=== PATIENT | female | born 1985 | race Caucasian/White ===

== ENCOUNTER 2017-03-07 21:47 | Emergency (ER) | payer OTHER ==
[2017-03-07] MEDS ORDERED: SODIUM CHLORIDE 0.9% 1,000 ML IV ONE (22:24)
[2017-03-07] MEDS ORDERED: RX INFO: IV CONTRAST WAS GIVEN 1 EACH MISC MISCELLANE PRN (22:30)
[2017-03-07] MEDS ORDERED: HYDROmorphone 1 MG/ML 1 ML SYRINGE IVP STA (22:30)
[2017-03-07 23:02] LABS: Basophils # (A) 0.1 k/uL (0-0.2); Basophils % (A) 1 %; CH 31.4; CHCM 35.4; Eosinophils # (A) 0.1 k/uL (0-0.7); Eosinophils % (A) 1 %; HCT 36.9 % (34.0-46.0); HDW 2.57; Luc # (Auto) 0.15; Luc % (Auto) 1; Lymphocytes # (A) 1.8 k/uL (1.0-4.8); Lymphocytes % (A) 17 %; MCH 31.2 pg (25.0-35.0); MCHC 35.1 g/dL (31.0-37.0); MCV 88.9 fL (80.0-100.0); Mean Platelet Volume 6.9; Monocytes # (A) 0.4 k/uL (0-1.0); Monocytes % (A) 4 %; Neutrophils % (A) 76 %; RBC 4.16 m/uL (3.80-5.40); RDW 12.5 % (11.5-15.5); WBC 10.5 k/uL (3.8-10.6); WBC (Perox) 10.91
[2017-03-07 23:05] LABS: Appearance,Urine Clear (Clear); Bilirubin,Urine Negative (Negative); Glucose,Urine (UA) Negative (Negative); Ketones,Urine Negative (Negative); Leukocyte Esterase,Urine Negative (Negative); Nitrite,Urine Negative (Negative); Protein,Urine Negative (Negative); Specific Gravity,Urine 1.001 (1.001-1.035); UA Billing (MACRO vs. MICRO) CHEM; Urobilinogen,Urine <2.0 mg/dL (<2.0)
[2017-03-07 23:11] LABS: ALT 31 U/L (9-52); AST 20 U/L (14-36); Alkaline Phosphatase 56 U/L (38-126); Amylase 40 U/L (30-110); Anion Gap 11 mmol/L; Blood Urea Nitrogen 8 mg/dL (7-17); Calcium 10.3 mg/dL (8.4-10.2); Carbon Dioxide 24 mmol/L (22-30); Chloride 109 mmol/L (98-107); Glucose 93 mg/dL (74-99); Non-African American GFR(MDRD) >60 (>60 ml/min/1.73 sqM); Sodium 144 mmol/L (137-145); Total Bilirubin 0.5 mg/dL (0.2-1.3); Total Protein 6.8 g/dL (6.3-8.2)
[2017-03-07 23:12] LABS: INR 1.2 (<1.1); Prothrombin Time 11.7 sec (9.0-12.0)
[2017-03-07 23:13] LABS: Partial Thromboplastin Time 27.3 sec (22.0-30.0)
--- NOTE | 2017-03-07 23:49 | ED ---
Female Urogenital HPI - General Chief complaint: Urogenital Stated complaint: Abd Pain Time Seen by Provider: 03/07/17 22:05 Source: patient Mode of arrival: wheelchair Limitations: no limitations - History of Present Illness Initial comments: This is a 31-year-old female presenting to emergency Department chief complaint of lower suprapubic pain for the past week. Patient reports that the pain will be sudden in onset and then stop. Patient states that she's had no fever or chills. She reports that last week she did have some vaginal bleeding and clots. She reports that it stopped for the past 5 days. Patient reports however yesterday she did have some dark red blood. She denies any chance of . She reports that she's had tubal ligation. Denies any other abdominal surgeries. PAtient also reports diarrhea for past 2 days. Last Menstrual Period: 02/27/17 - Related Data Home Medications Medication Instructions Recorded Confirmed Aspirin/Acetaminophen/Caffeine 1 tab PO Q3HR PRN 03/07/17 03/07/17 [Excedrin Migraine Caplet] Previous Rx's Medication Instructions Recorded Ciprofloxacin HCl [Cipro] 500 mg PO Q12HR #20 tablet 03/08/17 HYDROcodone/APAP 10-325MG [[place] 1 tab PO Q6H PRN #15 tab 03/08/17 10-325] Metoclopramide HCl [Reglan] 10 mg PO TID #15 tablet 03/08/17 metroNIDAZOLE [Flagyl] 500 mg PO Q8HR #30 tab 03/08/17 Allergies Allergy/AdvReac Type Severity Reaction Status Date / Time No Known Allergies Allergy Verified 03/07/17 22:57 Review of Systems ROS Statement: Those systems with pertinent positive or pertinent negative responses have been documented in the HPI. ROS Other: All systems not noted in ROS Statement are negative. Past Medical History Additional Past Medical History / Comment(s): kidney disease. History of Any Multi-Drug Resistant Organisms: None Reported Past Surgical History: Tubal Ligation Additional Past Surgical History / Comment(s): d&c Past Psychological History: No Psychological Hx Reported Smoking Status: Current every day smoker Past Alcohol Use History: None Reported Past Drug Use History: Marijuana General Exam - General Exam Comments Initial Comments: Patient is rocking back in forth on bed, writhing in pain. Some dryheaves on exam. Limitations: no limitations General appearance: alert, in no apparent distress Head exam: Present: atraumatic, normocephalic, normal inspection Eye exam: Present: normal appearance, PERRL, EOMI. Absent: scleral icterus, conjunctival injection, periorbital swelling ENT exam: Present: normal exam, mucous membranes moist Neck exam: Present: normal inspection. Absent: tenderness, meningismus, lymphadenopathy Respiratory exam: Present: normal lung sounds bilaterally. Absent: respiratory distress, wheezes, rales, rhonchi, stridor Cardiovascular Exam: Present: regular rate, normal rhythm, normal heart sounds. Absent: systolic murmur, diastolic murmur, rubs, gallop, clicks GI/Abdominal exam: Present: soft, tenderness (suprapubic tenderness), normal bowel sounds. Absent: distended, guarding, rebound, rigid Extremities exam: Present: normal inspection, full ROM, normal capillary refill. Absent: tenderness, pedal edema, joint swelling, calf tenderness Back exam: Present: normal inspection Neurological exam: Present: alert, oriented X3, CN II-XII intact Psychiatric exam: Present: normal affect, normal mood Skin exam: Present: warm, dry, intact, normal color. Absent: rash Course Vital Signs 03/07/17 03/07/17 03/08/17 21:50 22:56 01:01 Temperature 99.1 F 98.6 F Pulse Rate 67 69 62 Respiratory 20 18 16 Rate Blood Pressure 119/63 111/56 104/61 O2 Sat by Pulse 96 97 98 Oximetry 03/08/17 02:29 Temperature 97.9 F Pulse Rate 68 Respiratory 18 Rate Blood Pressure 104/72 O2 Sat by Pulse 99 Oximetry Medical Decision Making - Medical Decision Making 31-year-old female chief complaint of cramping pelvic pain and diarrhea for the past 2 days. Patient received IV pain medication, nausea medicine and blood work. Patient lab work was reviewed and benign. She did receive a CAT scan based on her physical presentation of severe lower abdominal pain. CAT scan shows evidence of colitis, 2.5 cm right ovarian cyst, some mild free fluid. Patient was also reevaluated with a transvaginal ultrasound. Patient ultrasound was negative for ovarian torsion. Patient will be treated with colitis with antibiotics. Discuss close follow-up with a primary care physician. Also discussed the patient can take nausea medicine or pain medicine as needed. Patient understands treatment plan will comply. Return parameters were discussed. - Lab Data Result diagrams: 03/07/17 22:45 03/07/17 22:45 Lab Results 03/07/17 03/07/17 03/07/17 Range/Units 22:41 22:41 22:45 WBC 10.5 (3.8-10.6) k/uL RBC 4.16 (3.80-5.40) m/uL Hgb 13.0 (11.4-16.0) gm/dL Hct 36.9 (34.0-46.0) % MCV 88.9 (80.0-100.0) fL MCH 31.2 (25.0-35.0) pg MCHC 35.1 (31.0-37.0) g/dL RDW 12.5 (11.5-15.5) % Plt Count 321 (150-450) k/uL Neutrophils % 76 % Lymphocytes % 17 % Monocytes % 4 % Eosinophils % 1 % Basophils % 1 % Neutrophils # 8.0 H (1.3-7.7) k/uL Lymphocytes # 1.8 (1.0-4.8) k/uL Monocytes # 0.4 (0-1.0) k/uL Eosinophils # 0.1 (0-0.7) k/uL Basophils # 0.1 (0-0.2) k/uL PT (9.0-12.0) sec INR (<1.1) APTT (22.0-30.0) sec Sodium (137-145) mmol/L Potassium (3.5-5.1) mmol/L Chloride (98-107) mmol/L Carbon Dioxide (22-30) mmol/L Anion Gap mmol/L BUN (7-17) mg/dL Creatinine (0.52-1.04) mg/dL Est GFR (MDRD) Af Amer (>60 ml/min/1.73 sqM) Est GFR (MDRD) Non-Af (>60 ml/min/1.73 sqM) Glucose (74-99) mg/dL Calcium (8.4-10.2) mg/dL Total Bilirubin (0.2-1.3) mg/dL AST (14-36) U/L ALT (9-52) U/L Alkaline Phosphatase (38-126) U/L Total Protein (6.3-8.2) g/dL Albumin (3.5-5.0) g/dL Amylase (30-110) U/L Urine Color Colorless Urine Appearance Clear (Clear) Urine pH 6.0 (5.0-8.0) Ur Specific [place] 1.001 (1.001-1.035) Urine Protein Negative (Negative) Urine Glucose (UA) Negative (Negative) Urine Ketones Negative (Negative) Urine Blood Negative (Negative) Urine Nitrite Negative (Negative) Urine Bilirubin Negative (Negative) Urine Urobilinogen <2.0 (<2.0) mg/dL Ur Leukocyte Esterase Negative (Negative) Urine HCG, Qual Not Detected (Not Detectd) Stool Occult Blood (Negative) Trichomonas Ag (Rapid) (Negative) 03/07/17 03/07/17 03/08/17 Range/Units 22:45 22:45 00:25 WBC (3.8-10.6) k/uL RBC (3.80-5.40) m/uL Hgb (11.4-16.0) gm/dL Hct (34.0-46.0) % MCV (80.0-100.0) fL MCH (25.0-35.0) pg MCHC (31.0-37.0) g/dL RDW (11.5-15.5) % Plt Count (150-450) k/uL Neutrophils % % Lymphocytes % % Monocytes % % Eosinophils % % Basophils % % Neutrophils # (1.3-7.7) k/uL Lymphocytes # (1.0-4.8) k/uL Monocytes # (0-1.0) k/uL Eosinophils # (0-0.7) k/uL Basophils # (0-0.2) k/uL PT 11.7 (9.0-12.0) sec INR 1.2 (<1.1) APTT 27.3 (22.0-30.0) sec Sodium 144 (137-145) mmol/L Potassium 4.0 (3.5-5.1) mmol/L Chloride 109 H (98-107) mmol/L Carbon Dioxide 24 (22-30) mmol/L Anion Gap 11 mmol/L BUN 8 (7-17) mg/dL Creatinine 0.70 (0.52-1.04) mg/dL Est GFR (MDRD) Af Amer >60 (>60 ml/min/1.73 sqM) Est GFR (MDRD) Non-Af >60 (>60 ml/min/1.73 sqM) Glucose 93 (74-99) mg/dL Calcium 10.3 H (8.4-10.2) mg/dL Total Bilirubin 0.5 (0.2-1.3) mg/dL AST 20 (14-36) U/L ALT 31 (9-52) U/L Alkaline Phosphatase 56 (38-126) U/L Total Protein 6.8 (6.3-8.2) g/dL Albumin 4.4 (3.5-5.0) g/dL Amylase 40 (30-110) U/L Urine Color Urine Appearance (Clear) Urine pH (5.0-8.0) Ur Specific [place] (1.001-1.035) Urine Protein (Negative) Urine Glucose (UA) (Negative) Urine Ketones (Negative) Urine Blood (Negative) Urine Nitrite (Negative) Urine Bilirubin (Negative) Urine Urobilinogen (<2.0) mg/dL Ur Leukocyte Esterase (Negative) Urine HCG, Qual (Not Detectd) Stool Occult Blood (Negative) Trichomonas Ag (Rapid) Negative (Negative) 03/08/17 Range/Units 00:58 WBC (3.8-10.6) k/uL RBC (3.80-5.40) m/uL Hgb (11.4-16.0) gm/dL Hct (34.0-46.0) % MCV (80.0-100.0) fL MCH (25.0-35.0) pg MCHC (31.0-37.0) g/dL RDW (11.5-15.5) % Plt Count (150-450) k/uL Neutrophils % % Lymphocytes % % Monocytes % % Eosinophils % % Basophils % % Neutrophils # (1.3-7.7) k/uL Lymphocytes # (1.0-4.8) k/uL Monocytes # (0-1.0) k/uL Eosinophils # (0-0.7) k/uL Basophils # (0-0.2) k/uL PT (9.0-12.0) sec INR (<1.1) APTT (22.0-30.0) sec Sodium (137-145) mmol/L Potassium (3.5-5.1) mmol/L Chloride (98-107) mmol/L Carbon Dioxide (22-30) mmol/L Anion Gap mmol/L BUN (7-17) mg/dL Creatinine (0.52-1.04) mg/dL Est GFR (MDRD) Af Amer (>60 ml/min/1.73 sqM) Est GFR (MDRD) Non-Af (>60 ml/min/1.73 sqM) Glucose (74-99) mg/dL Calcium (8.4-10.2) mg/dL Total Bilirubin (0.2-1.3) mg/dL AST (14-36) U/L ALT (9-52) U/L Alkaline Phosphatase (38-126) U/L Total Protein (6.3-8.2) g/dL Albumin (3.5-5.0) g/dL Amylase (30-110) U/L Urine Color Urine Appearance (Clear) Urine pH (5.0-8.0) Ur Specific [place] (1.001-1.035) Urine Protein (Negative) Urine Glucose (UA) (Negative) Urine Ketones (Negative) Urine Blood (Negative) Urine Nitrite (Negative) Urine Bilirubin (Negative) Urine Urobilinogen (<2.0) mg/dL Ur Leukocyte Esterase (Negative) Urine HCG, Qual (Not Detectd) Stool Occult Blood Negative (Negative) Trichomonas Ag (Rapid) (Negative) - Radiology Data Radiology results: report reviewed CT impression shows nonspecific colitis is likely infectious or inflammatory. Trace nonspecific pelvic free fluid. No free air local relation of fluid collection. Indeterminant 2.5 cm right adnexal cystic structure. Pelvic ultrasound may be considered peripheral characterization as clinically indicated.No sonographic findings suggesting ovarian torsion. Dominant right ovarian follicle. Left ovary measures 2.9 x 1.3 x 1.9 cm. Right ovary shows a 3.8 x 3.0 x 2.87 days. 2.5 cm simple appearing right ovarian cyst likely represents a dominant follicle. No signs of ovarian torsion. Disposition Clinical Impression: Colitis, Right ovarian cyst Disposition: HOME SELF-CARE Condition: Good Instructions: Ovarian Cyst (ED), Colitis (ED) Additional Instructions: Completely anabiotic prescriptions. Follow-up with her primary care doctor in the next 2 days. Return to the emergency department if any alarming signs or symptoms occur. Take nausea medication as directed. Clear liquid diet for the next 2 days. Prescriptions: Ciprofloxacin HCl [Cipro] 500 mg PO Q12HR #20 tablet HYDROcodone/APAP 10-325MG [[place] 10-325] 1 tab PO Q6H PRN #15 tab PRN Reason: Pain Metoclopramide HCl [Reglan] 10 mg PO TID #15 tablet metroNIDAZOLE [Flagyl] 500 mg PO Q8HR #30 tab Referrals: None,Stated [Primary Care Provider] - 1-2 days Candace Fletcher MD [STAFF PHYSICIAN] - 1-2 days Time of Disposition: 01:55
--- NOTE | 2017-03-08 00:40 | CT ---
EXAM: CT Abdomen and Pelvis With Intravenous Contrast CLINICAL HISTORY: Right lower quadrant abdominal pain, vomiting TECHNIQUE: Axial computed tomography images of the abdomen and pelvis with intravenous contrast. CTDI is 4.70, 4.60 mGy and DLP is 331.50 mGy-cm. This CT exam was performed using one or more of the following dose reduction techniques: automated exposure control, adjustment of the mA and/or kV according to patient size, and/or use of iterative reconstruction technique. COMPARISON: No relevant prior studies available. FINDINGS: Lower thorax: No acute findings. ABDOMEN: Liver: Hepatomegaly. No focal hepatic lesions. Gallbladder and bile ducts: Unremarkable. No calcified stones. Pancreas: Unremarkable. Spleen: Unremarkable. Adrenals: Unremarkable. Kidneys and ureters: Mild lobulated contour of the right kidney. The kidneys are otherwise unremarkable. No hydronephrosis. Stomach and bowel: Thickening of the underdistended colon is compatible with nonspecific colitis. Bowel is nondilated. Appendix: No findings to suggest acute appendicitis. PELVIS: Bladder: Unremarkable. Reproductive: A 2.5 cm indeterminate right adnexal cystic structure is likely physiologic. ABDOMEN and PELVIS: Intraperitoneal space: Trace nonspecific pelvic free fluid. No free air or loculated fluid collection. Bones/joints: No acute osseous abnormality. Soft tissues: Unremarkable. Vasculature: Unremarkable. No abdominal aortic aneurysm. Lymph nodes: Unremarkable. No enlarged lymph nodes. IMPRESSION: Nonspecific colitis is likely infectious or inflammatory. Trace nonspecific pelvic free fluid. No free air or loculated fluid collection. Indeterminate 2.5 cm right adnexal cystic structure. Pelvic ultrasound may be considered for further characterization, as clinically indicated.
[2017-03-08] MEDS ORDERED: diphenhydrAMINE 50 MG/ML 1 ML VIAL IVP STA (00:48)
[2017-03-08] MEDS ORDERED: METOCLOPRAMIDE 5 MG/ML 2 ML VIAL IVP STA (00:48)
[2017-03-08] MEDS ORDERED: MORPHINE SULFATE 4 MG/ML SYRINGE IVP STA (00:49)
[2017-03-08] MEDS ORDERED: SODIUM CHLORIDE 0.9% 1,000 ML IV ONE (00:59)
--- NOTE | 2017-03-08 01:47 | US ---
EXAM: US Pelvis, Transvaginal CLINICAL HISTORY: Reason: Pain TECHNIQUE: Real-time transvaginal pelvic ultrasound (complete) with image documentation. Transvaginal imaging was used for better evaluation of the endometrium and adnexa. COMPARISON: CT 03/07/2017 FINDINGS: Uterus/cervix: The uterus is normal in size and measures 9.6 x 4.4 x 5. 1 cm. The endometrium is normal in caliber, measuring 1 cm in diameter. No myometrial mass. Right ovary: The right ovary is unremarkable in size and appearance with normal vascular flow and measures 3.8 x 3.0 x 2.8 cm. A 2.5 cm simple appearing right ovarian cyst likely represents a dominant follicle. No adnexal masses. Left ovary: The left ovary is unremarkable in size and appearance with normal vascular flow measuring 3.9 x 1.3 x 1.9 cm. Free fluid: Trace nonspecific pelvic free fluid is likely physiologic. Bladder: Empty bladder which cannot be evaluated with this probe. IMPRESSION: No sonographic findings to suggest ovarian torsion. Trace nonspecific pelvic free fluid is likely physiologic. Dominant right ovarian follicle.
[2017-03-08] MEDS ORDERED: ONDANSETRON 4 MG ODT STARTER PACK 2 TAB BTL PO STA (02:07)
[2017-03-08 02:31] VITALS: BP 104/72; PULSE 68; RESP 18; TEMP 97.9
== END 2017-03-08 02:29 | disposition home or self-care (01) ==
LOC: EC 21:47
DX: K52.9 Noninfective gastroenteritis and colitis, unspecified (principal); N83.201 Unspecified ovarian cyst, right side; R11.10 Vomiting, unspecified; F17.200 Nicotine dependence, unspecified, uncomplicated; Z98.51 Tubal ligation status
CPT/HCPCS: 99284; 96374; 96375 ×3; 96361; 36415 ×2; 80053; 87591; 87491; 82150; 85025; 85610; 85730; 82272; 81003; 81025; 87808; 87070; 93975; 76830; 74177; J2270; J1200; J2765; J1170; Q9967; 87205

== ENCOUNTER 2017-03-09 16:47 | Inpatient (IN) | payer OTHER ==
[2017-03-09] MEDS ORDERED: SODIUM CHLORIDE 0.9% 1,000 ML IV ONE (17:32)
[2017-03-09] MEDS ORDERED: HYDROmorphone 1 MG/ML 1 ML SYRINGE IVP STA (17:33)
[2017-03-09] MEDS ORDERED: ONDANSETRON 4 MG/2 ML VIAL IVP STA (17:33)
--- NOTE | 2017-03-09 17:51 | ED ---
Abdominal Pain HPI - General Chief Complaint: Abdominal Pain Stated Complaint: abdominal pain Time Seen by Provider: 03/09/17 16:49 Source: patient, RN notes reviewed Mode of arrival: EMS Limitations: no limitations - History of Present Illness Initial Comments: Patient is a 31-year-old female presents to the emergency room for evaluation of abdominal pain. Patient was just here 2 days ago for the same issue. Patient states she having right lower quadrant pain that is a severe burning sensation. Patient states that she was told that she had colitis and ovarian cysts. Patient states she was sent home with antibiotics and pain medications. Patient states that she has been unable to take any of her medications prescribed because she's been vomiting. Patient states she has a history of tubal ligation. Patient denies any possibility of being . Patient denies chest pain or shortness of breath. Patient states she has been having on -and-off hot flashes. Patient denies pain or burning during urination, trouble urinating or blood in urine. Patient does state she smokes marijuana. Patient denies any other history of illicit drug use. Patient denies history of STDs. - Related Data Home Medications Medication Instructions Recorded Confirmed Aspirin/Acetaminophen/Caffeine 1 tab PO Q4H PRN 03/07/17 03/09/17 [Excedrin Migraine Caplet] Previous Rx's Medication Instructions Recorded Ciprofloxacin HCl [Cipro] 500 mg PO Q12HR #20 tablet 03/08/17 HYDROcodone/APAP 10-325MG [[place] 1 tab PO Q6H PRN #15 tab 03/08/17 10-325] Metoclopramide HCl [Reglan] 10 mg PO TID #15 tablet 03/08/17 metroNIDAZOLE [Flagyl] 500 mg PO Q8HR #30 tab 03/08/17 Allergies Allergy/AdvReac Type Severity Reaction Status Date / Time No Known Allergies Allergy Verified 03/07/17 22:57 Review of Systems ROS Statement: Those systems with pertinent positive or pertinent negative responses have been documented in the HPI. ROS Other: All systems not noted in ROS Statement are negative. Past Medical History Additional Past Medical History / Comment(s): kidney disease., ovarian cyst History of Any Multi-Drug Resistant Organisms: None Reported Past Surgical History: Tubal Ligation Additional Past Surgical History / Comment(s): d&c Past Psychological History: No Psychological Hx Reported Smoking Status: Current every day smoker Past Alcohol Use History: None Reported Past Drug Use History: Marijuana General Exam - General Exam Comments Initial Comments: Laying in exam room, anxious, actively vomiting Limitations: no limitations General appearance: alert, in no apparent distress Head exam: Present: atraumatic, normocephalic, normal inspection Eye exam: Present: normal appearance ENT exam: Present: normal exam Neck exam: Present: normal inspection Respiratory exam: Present: normal lung sounds bilaterally. Absent: respiratory distress Cardiovascular Exam: Present: regular rate, normal rhythm, normal heart sounds GI/Abdominal exam: Present: soft, tenderness (RLQ), normal bowel sounds. Absent : distended, guarding, rebound, rigid Extremities exam: Present: normal inspection Back exam: Present: normal inspection Neurological exam: Present: alert, oriented X3, CN II-XII intact Psychiatric exam: Present: normal affect, anxious Skin exam: Present: warm, dry, intact, normal color. Absent: rash Course Vital Signs 03/09/17 16:54 Temperature 98.7 F Pulse Rate 85 Respiratory 18 Rate Blood Pressure 115/73 O2 Sat by Pulse 99 Oximetry Medical Decision Making - Medical Decision Making Patient is a 31-year-old female presents emergency room for evaluation of abdominal pain and vomiting. Patient was seen 2 days ago sent home with antibiotics for colitis. Patient did have a full workup including abdominal/ pelvis CT, ultrasound and KUB x-ray. Patient still continuing to have pain with vomiting. No relief of symptoms after Zofran. Will admit patient for failed outpatient treatment and intractable vomiting. Patient was started on IV Flagyl. Case discussed with Dr. Humphrey. Case also discussed with Allison ESPINOSA cricket coach who agreed to admit to Dr. Mcclellan. - Lab Data Result diagrams: 03/09/17 17:35 03/09/17 17:35 Lab Results 03/09/17 03/09/17 03/09/17 Range/Units 17:35 17:35 17:35 WBC 10.9 H (3.8-10.6) k/uL RBC 4.21 (3.80-5.40) m/uL Hgb 12.8 (11.4-16.0) gm/dL Hct 38.0 (34.0-46.0) % MCV 90.4 (80.0-100.0) fL MCH 30.4 (25.0-35.0) pg MCHC 33.7 (31.0-37.0) g/dL RDW 12.6 (11.5-15.5) % Plt Count 290 (150-450) k/uL Neutrophils % 83 % Lymphocytes % 10 % Monocytes % 4 % Eosinophils % 0 % Basophils % 1 % Neutrophils # 9.0 H (1.3-7.7) k/uL Lymphocytes # 1.1 (1.0-4.8) k/uL Monocytes # 0.5 (0-1.0) k/uL Eosinophils # 0.0 (0-0.7) k/uL Basophils # 0.1 (0-0.2) k/uL Sodium 141 (137-145) mmol/L Potassium 3.7 (3.5-5.1) mmol/L Chloride 109 H (98-107) mmol/L Carbon Dioxide 20 L (22-30) mmol/L Anion Gap 12 mmol/L BUN 8 (7-17) mg/dL Creatinine 0.59 (0.52-1.04) mg/dL Est GFR (MDRD) Af Amer >60 (>60 ml/min/1.73 sqM) Est GFR (MDRD) Non-Af >60 (>60 ml/min/1.73 sqM) Glucose 69 L (74-99) mg/dL Calcium 9.2 (8.4-10.2) mg/dL Total Bilirubin 0.8 (0.2-1.3) mg/dL AST 21 (14-36) U/L ALT 31 (9-52) U/L Alkaline Phosphatase 58 (38-126) U/L Total Protein 6.5 (6.3-8.2) g/dL Albumin 4.0 (3.5-5.0) g/dL Amylase 40 (30-110) U/L Lipase 30 (23-300) U/L Disposition Clinical Impression: Intractable vomiting, Colitis, Failure of outpatient treatment Disposition: ADMITTED IP TO THIS [facility] Condition: Stable Decision Date: 03/09/17
[2017-03-09 18:33] LABS: Basophils # (A) 0.1 k/uL (0-0.2); Basophils % (A) 1 %; CH 31.4; CHCM 34.9; Eosinophils % (A) 0 %; HDW 2.67; HGB 12.8 gm/dL (11.4-16.0); Luc # (Auto) 0.19; Luc % (Auto) 2; Lymphocytes # (A) 1.1 k/uL (1.0-4.8); Lymphocytes % (A) 10 %; MCH 30.4 pg (25.0-35.0); MCHC 33.7 g/dL (31.0-37.0); MCV 90.4 fL (80.0-100.0); Mean Platelet Volume 7.1; Monocytes # (A) 0.5 k/uL (0-1.0); Monocytes % (A) 4 %; Neutrophils % (A) 83 %; RBC 4.21 m/uL (3.80-5.40); RDW 12.6 % (11.5-15.5); WBC 10.9 k/uL (3.8-10.6); WBC (Perox) 11.15
[2017-03-09 18:44] LABS: ALT 31 U/L (9-52); AST 21 U/L (14-36); Alkaline Phosphatase 58 U/L (38-126); Amylase 40 U/L (30-110); Anion Gap 12 mmol/L; Blood Urea Nitrogen 8 mg/dL (7-17); Calcium 9.2 mg/dL (8.4-10.2); Carbon Dioxide 20 mmol/L (22-30); Chloride 109 mmol/L (98-107); Glucose 69 mg/dL (74-99); Non-African American GFR(MDRD) >60 (>60 ml/min/1.73 sqM); Potassium 3.7 mmol/L (3.5-5.1); Sodium 141 mmol/L (137-145); Total Bilirubin 0.8 mg/dL (0.2-1.3); Total Protein 6.5 g/dL (6.3-8.2)
[2017-03-09] MEDS ORDERED: METOCLOPRAMIDE 5 MG/ML 2 ML VIAL IVP STA (19:39)
[2017-03-09] MEDS ORDERED: NALOXONE 0.4 MG/ML 1 ML VIAL IV PRN (19:41)
[2017-03-09] MEDS ORDERED: metroNIDAZOLE-NS PMX 500 MG in SALINE 1 100ML.BAG IVPB STA (19:43)
[2017-03-09] MEDS: SODIUM CHLORIDE 0.9% 1,000 ML IV SCH (19:50)
[2017-03-09 20:09] LABS: Appearance,Urine Clear (Clear); Bilirubin,Urine Negative (Negative); Glucose,Urine (UA) Negative (Negative); Ketones,Urine 4+ (Negative); Leukocyte Esterase,Urine Negative (Negative); Nitrite,Urine Negative (Negative); PH, Urine 6.5 (5.0-8.0); Protein,Urine Trace (Negative); Specific Gravity,Urine 1.021 (1.001-1.035); UA Billing (MACRO vs. MICRO) CHEM; Urobilinogen,Urine <2.0 mg/dL (<2.0)
[2017-03-09] MEDS: HYDROmorphone 1 MG/ML 1 ML SYRINGE IV PRN (20:39)
[2017-03-09 21:11] VITALS: BMI 19.7
[2017-03-09] MEDS ORDERED: METOCLOPRAMIDE 5 MG/ML 2 ML VIAL IVP PRN (22:15)
[2017-03-10] MEDS: metroNIDAZOLE-NS PMX 500 MG in SALINE 1 100ML.BAG IVPB SCH ×3 (04:49→21:20)
[2017-03-10] MEDS: SODIUM CHLORIDE 0.9% 1,000 ML IV SCH ×2 (04:49→15:59)
[2017-03-10] MEDS ORDERED: PANTOPRAZOLE 40 MG/10 ML VIAL IV SCH (09:00)
[2017-03-10] MEDS: HYDROmorphone 1 MG/ML 1 ML SYRINGE IV PRN (10:50)
[2017-03-10] MEDS ORDERED: KETOROLAC 30 MG/ML 1 ML VIAL IVP PRN (12:47)
--- NOTE | 2017-03-10 13:45 | P.OBCN ---
History of Present Illness Consult date: 03/10/17 Reason for consult: ovarian cyst (2.5cm) Chief complaint: N/V/D abdominal pain History of present illness: 31 year old presented to the ER with abdominal pain associated with nausea , vomiting and diarrhea. She was worked up a few days ago with a computed tomography scan and ultrasound that showed a 2.5 cm right ovarian cyst but also showed inflammation or infection in the colon; colitis. She was unable to keep the Flagyl or the pain medication down at home so she came back to the emergency room and was admitted. She is now on IV Flagyl and Reglan. The abdominal pain is diffuse. Review of Systems All systems: negative Constitutional: Denies chills, Denies fever Eyes: denies blurred vision, denies pain Ears, nose, mouth and throat: Reports sore throat, Denies headache Cardiovascular: Denies chest pain, Denies shortness of breath Respiratory: Reports cough Gastrointestinal: Reports abdominal pain, Reports diarrhea, Reports nausea, Reports vomiting, Denies hematemesis Genitourinary: Denies dysuria, Denies hematuria Musculoskeletal: Denies myalgias Integumentary: Denies pruritus, Denies rash Neurological: Denies numbness, Denies weakness Psychiatric: Denies anxiety, Denies depression Endocrine: Denies fatigue, Denies weight change Past Medical History Past Medical History: Renal Disease Additional Past Medical History / Comment(s): kidney disease., ovarian cyst. Obstetric history: She's had 7 pregnancies. She's had 6 vaginal deliveries and 1 missed requiring a D&C. She does not have custody of any of these children but is waiting to get the last 3 back as the first 3 are living with her dad happily. History of Any Multi-Drug Resistant Organisms: None Reported Past Surgical History: Tubal Ligation Additional Past Surgical History / Comment(s): d&c Past Psychological History: No Psychological Hx Reported Smoking Status: Current every day smoker Past Alcohol Use History: None Reported Past Drug Use History: Cocaine (Has not had crack cocaine in the last 8 months) , Marijuana (States she has a medical marijuana card for low back pain) - Past Family History Mother Family Medical History: Cancer, COPD Medications and Allergies Home Medications Medication Instructions Recorded Confirmed Type Aspirin/Acetaminophen/Caffeine 1 tab PO Q4H PRN 03/07/17 03/09/17 History [Excedrin Migraine Caplet] Allergies Allergy/AdvReac Type Severity Reaction Status Date / Time No Known Allergies Allergy Verified 03/07/17 22:57 Exam Osteopathic Statement: *. No significant issues noted on an osteopathic structural exam other than those noted in the History and Physical/Consult. - Vital Signs Vital signs: Vital Signs Temp Pulse Pulse Pulse Resp BP BP 03/10/17 09:45 76 03/10/17 09:44 98.6 F 76 16 111/68 03/10/17 04:00 98.0 F 60 18 114/70 03/09/17 21:00 98.0 F 51 L 20 110/72 03/09/17 20:30 98.1 F 68 18 137/81 03/09/17 16:54 98.7 F 85 18 115/73 Pulse Ox 03/10/17 09:45 03/10/17 09:44 96 03/10/17 04:00 03/09/17 21:00 99 03/09/17 20:30 99 03/09/17 16:54 99 Intake and Output 03/09/17 03/10/17 03/10/17 22:59 06:59 14:59 Intake Total 60 240 Output Total 400 150 Balance 60 -160 -150 Intake: Oral 60 240 Output: Urine 400 150 Other: # Voids 2 # Bowel Movements 1 Weight 52.163 kg Abdomen: Soft, tender to deep palpation diffusely. Hyperactive bowel sounds. Results Result Diagrams: 03/09/17 17:35 03/09/17 17:35 Abnormal Lab Results - Last 24 Hours (Table) 03/09/17 03/09/17 03/09/17 Range/Units 17:35 17:35 19:51 WBC 10.9 H (3.8-10.6) k/uL Neutrophils # 9.0 H (1.3-7.7) k/uL Chloride 109 H (98-107) mmol/L Carbon Dioxide 20 L (22-30) mmol/L Glucose 69 L (74-99) mg/dL Urine Protein Trace H (Negative) Urine Ketones 4+ H (Negative) Urine Opiates Screen Detected H (NotDetected) U Marijuana (THC) Screen Detected H (NotDetected) Assessment and Plan (1) Right ovarian cyst Status: Acute Plan: 1. This 2.5 cm cyst is likely just a functional follicular cyst. She is welcome to follow-up with me outpatient for a yearly exam in a month or 2.
[2017-03-10] MEDS ORDERED: HYDROcodone/APAP 7.5-325MG 1 EACH TAB PO PRN (14:00)
[2017-03-10] MEDS ORDERED: PROCHLORPERAZINE 10 MG TAB PO PRN (15:28)
[2017-03-10] MEDS: ONDANSETRON 4 MG/2 ML VIAL IVP PRN (16:24)
[2017-03-10] MEDS ORDERED: METOCLOPRAMIDE 5 MG/ML 2 ML VIAL IVP PRN (18:11)
--- NOTE | 2017-03-10 20:43 | HP ---
DATE OF ADMISSION: 03/09/2017 Patient is a 31-year-old female who came in with abdominal pain a couple days ago to the ER and patient was diagnosed with nonspecific colitis. The patient's pain is in the right lower quadrant with associated with some nausea, vomiting and patient also has severe burning sensation in the epigastric area and epigastric area and patient did have epigastric abdominal tenderness as well and patient still has 6/10 pain now and patient had 9/10 pain and patient had a CT of the abdomen, was given antibiotics and was discharged home, unable to take antibiotics. Became nauseous and came back again to the ER and patient was found to have a nonspecific colitis. Location of the colitis is not read in the CT. I looked at the CT. I am not exactly sure of the location of the colitis. Checking with the radiologist, to re-read the scan as the location of the colitis is not specified and patient also has a 2.5 cm cyst for which we asked CLAY CARMAN to evaluate the patient. They do not believe that it is causing any significant pain at this point time. They will follow the patient on an outpatient basis. Patient is presently on metronidazole, which is being continued and patient has been vomiting, unable to take her medications because of vomiting. Denied any hematemesis, hematochezia. Denied any diarrhea. Denied any chest pain or shortness of breath. REVIEW OF SYSTEMS: CONSTITUTIONAL: No fever, no malaise, no fatigue. HEENT: No recent visual problems or hearing problems. Denied any sore throat. CARDIOVASCULAR: No chest pain, orthopnea, PND, no palpitations, no syncope. PULMONARY: No shortness of breath, no cough, no hemoptysis. GASTROINTESTINAL: As described in history of present illness. NEUROLOGICAL: No headaches, no weakness, no numbness. HEMATOLOGICAL: Denies any bleeding or petechiae. GENITOURINARY: Denies any burning micturition, frequency, or urgency. MUSCULOSKELETAL/RHEUMATOLOGICAL: Denies any joint pain, swelling, or any muscle pain. ENDOCRINE: Denies any polyuria or polydipsia. The rest of the 14 point review of systems is negative. The patient does smoke marijuana. Home medications include: 1. Aspirin. 2. Acetaminophen. 3. Caffeine. 4. Ciprofloxacin. 5. Hydrocodone. 6. Acetaminophen. 7. Reglan. 8. Metronidazole. Allergies: No known drug allergies. PAST MEDICAL HISTORY: Significant for tubal ligation surgery. Ovarian cyst. Patient is a smoker. Denied any alcohol abuse. Use of marijuana as mentioned above. FAMILY HISTORY: Significant for cancer and chronic obstructive pulmonary disease. PHYSICAL EXAMINATION: VITAL SIGNS: Temperature 98.6, pulse 76, respiratory rate of 16. Blood pressure is 116/68, saturating at 96% on room air. GENERAL: The patient is alert and oriented x3, not in any acute distress. Well developed, well nourished. HEENT: Pupils are round and equally reacting to light. EOMI. No scleral icterus. No conjunctival pallor. Normocephalic, atraumatic. No pharyngeal erythema. No thyromegaly. CARDIOVASCULAR: S1 and S2 present. No murmurs, rubs, or gallops. PULMONARY: Chest is clear to auscultation, no wheezing or crackles. ABDOMEN: Patient has significant tenderness in the epigastric area epigastric area. Lipase is negative. The patient also has very minimal tenderness in the right lower quadrant. MUSCULOSKELETAL: No joint swelling or deformity. EXTREMITIES: No cyanosis, clubbing, or pedal edema. NEUROLOGICAL: Gross neurological examination did not reveal any focal deficits. SKIN: No rashes. LABORATORY DATA: CBC, CMP abnormal for elevated WBC count 10,900. Patient is afebrile. ASSESSMENT AND PLAN: 1. Abdominal pain in the right lower quadrant. CT of the abdomen as described with nonspecific colitis, although patient is not defined. Patient will be continued on antibiotics and symptomatic management, IV fluids. We will check with radiology regarding location of the colitis. Patient denied any family history of inflammatory bowel disease in the family. If patient has inflammation in the terminal ileum and in the ileocecal area, then consideration for Crohn's colitis needs to be given but although on my personal review of CT I do not think the patient has inflammation of the cecum or terminal ileum but we will get an official read from the radiologist for the exact location of the colitis. Until then I will continue with antibiotics. We will also consult gastroenterology. 2. 2.5 cm cyst, physiologic cyst, do not believe that it is contributing to her pain. 3. Abdominal pain in the epigastric area. Gastritis or peptic ulcer disease needs to be considered and patient will be continued on Protonix. Initially ordered Ketorolac. That will be discontinued and patient was given [place] and the patient's Dilaudid will be discontinued. 4. Leukocytosis most probably reactive due to nausea, vomiting. 5. Marijuana use and nicotine abuse. Counseling was provided regarding that.
[2017-03-10] MEDS: PANTOPRAZOLE 40 MG/10 ML VIAL IVP SCH (21:21)
[2017-03-11] MEDS: ONDANSETRON 4 MG/2 ML VIAL IVP PRN (00:26)
[2017-03-11] MEDS: SODIUM CHLORIDE 0.9% 1,000 ML IV SCH (03:42)
[2017-03-11] MEDS: metroNIDAZOLE-NS PMX 500 MG in SALINE 1 100ML.BAG IVPB SCH (03:42)
[2017-03-11] MEDS: PANTOPRAZOLE 40 MG/10 ML VIAL IVP SCH (09:09)
[2017-03-11 09:15] VITALS: TEMP 97.9
[2017-03-11 11:10] VITALS: BP 123/78; PULSE 74; RESP 21
--- NOTE | 2017-03-11 12:25 | XR ---
EXAMINATION TYPE: XR chest 2V DATE OF EXAM ORDERED: 03/11/2017 HISTORY: chest pain worse with breathing. REFERENCE: None. FINDINGS: The lungs are clear. Pleural spaces are clear. Heart size is normal. IMPRESSION: NORMAL CHEST.
--- NOTE | 2017-03-12 10:06 | DS ---
DATE OF ADMISSION: 03/09/2017 DATE OF DISCHARGE: 03/11/2017 Patient left AMA. Patient probably is narcotic seeking.
== END 2017-03-11 12:26 | disposition left against medical advice (07) | DRG 392 ==
LOC: EC 16:47 → 6PED 19:49
PROVIDERS: ADMIT Hospitalist; ATTEND Hospitalist
DX: K52.9 Noninfective gastroenteritis and colitis, unspecified (principal); F17.200 Nicotine dependence, unspecified, uncomplicated; Z76.5 Malingerer [conscious simulation]; N83.201 Unspecified ovarian cyst, right side; M54.5 Low back pain; Z79.82 Long term (current) use of aspirin; Z98.51 Tubal ligation status; Z79.899 Other long term (current) drug therapy
CPT/HCPCS: 36415; 71020; 80053; 80306; 81003; 81025; 82150; 83690; 85025; 96361; 96365; 96375; 96376; 99285